=== PATIENT | male | born 1965 | race Caucasian/White ===

== ENCOUNTER 2016-05-15 17:57 | Emergency (ER) | payer OTHER ==
[~2016-05-15] VITALS: Ht 170.2 cm; Wt 81.8 kg
[~2016-05-15 17:57] MED LIST: IRON18TA PO; MAGN250T29 PO
[2016-05-15 18:06] VITALS: BP 163/93; PULSE 102; RESP 16; O2SAT 97
--- NOTE | 2016-05-15 19:05 | ED.REPORT ---
HPI-Extremity Problem Lower Date of Service May 15, 2016 ED Provider: Doc,Ed MD History of Present Illness: 51-year-old male here for lower and upper leg pain. This morning he had some lower leg itching and a mild amount of pain. He itched it and then he noticed a red evon. The itching and pain is gone. Later today his upper inner thigh started hurting. It felt like it was spasming. He tried to stretch and this helped a little bit. It is intermittently hurting, not necessarily with activity or rest. No swelling noted, no erythema. He has had no new activities. He also complains of chronic neck pain. He has not seen anyone for this. He is wanting an MRI. His intermittent numbness and tingling down his arms bilaterally. He also has a history of sciatica and low back pain this is a little bit different pain pattern than his typical sciatica. Denies numbness or tingling, loss of bowel or bladder, or fever Nursing Notes Stated Complaint: LEFT LEG PAIN Chief Complaint: Extremity Trauma Nursing Notes Reviewed: Yes Allergies: Coded Allergies: No Known Allergies (Verified Allergy, Unknown, 05/15/16) No Active Prescriptions or Reported Meds General Time Seen by MD: 18:39 Chief Complaint Thigh injury left Hx Obtained From: Patient Arrived By: Walk-in Onset Occurred: 5 - 8 hours ago Symptom Duration: Waxes and wanes Severity: Current: Mild Severity: Maximum: Moderate Additional Notes: intermittent upper inner thigh pain, relieved by frequent position changes. Pertinent Negative: Pt denies other symptoms Similar Sx Previous: Yes Past Medical History Past Medical History Behcet's syndrome Past Surgical History Hernia repair Smoking History Current Every Day Smoker Social History Alcohol Use: Denies alcohol use Other Social History: Homeless Ambulatory Status Independent Review of Systems Basic Review of Systems Respiratory: No shortness of breath Cardiovascular: No chest pain GI: No abdominal pain Psychiatric: Normal thought content Constitutional: Denies: Chills, Fatigue, Fever Musculoskeletal: Reports: Extremity pain, Neck pain, Denies: Extremity swelling Skin: Reports Itching Complete sys rev & neg: except as marked. GI: Denies: Abdominal pain Male: Denies Dysuria, Denies Penile discharge, Denies Testicular pain Physical Exam Initial Vital Signs Vital Signs (First) Date Time Temp Pulse Resp B/P Pulse Ox O2 Delivery O2 Flow Rate FiO2 05/15/16 18:06 36.1 102 16 163/93 97 Room Air Initial VS: Reviewed, Vital signs normal General/Constitutional: Well-developed Head / Eyes: Atraumatic Respiratory: Breath sounds normal, Clear to auscultation, No respiratory distress Cardiovascular: Regular rate & rhythm, Heart sounds normal, Intact distal pulses Upper Extremities: Vascular intact, No swelling, No tenderness Skin: Warm, Dry, No cyanosis Neurologic: Alert, Oriented, Nonfocal Psychiatric: Mood/affect normal, Behavior normal, Normal thought content Lower Extremity / Pelvis / MS: Atraumatic, Inspection NL, Full range of motion , No swelling, Non-tender, No erythema, No deformity, Neurologic intact, Vascular intact, No edema, Gait NL small bruise to LL leg no obvious swelling, erythema. mild tenderness with deep palp to upper inner thigh. Re-Eval/Medical Decision Med Decision/Clinical Course Discussed the likelihood of this being a blood clot, most likely muscular strain Discharge & Departure Shift Change Sign-Out Response to Therapy: Unchanged Impression: Primary Impression: Muscle strain of lower extremity Encounter type: initial encounter Laterality: left Qualified Code: S86.912A - Strain of unspecified muscle(s) and tendon(s) at lower leg level, left leg, initial encounter Disposition: Home Discharge Condition All VS Reviewed: Yes Condition: Stable Patient Instructions: Leg Cramps (ED) Additional Instructions: For your symptoms today you should increase rest, fluids, stretching. Do frequent position changes as needed. Continue with activity as tolerated. Consider seeing physical therapy. You are getting a referral to ortho for your neck anterior leg pain if this persists. Take her anti-inflammatories as needed for your pains ice and heat as well. Return if loss of bowel or bladder , numbness and tingling, or severe pain. Otherwise follow-up with her PCP and/ or ortho Referrals: Maryann Fleming (PCP) EDSupervising Provider for APC: Vaughn Hooker MD, Linnea K ARNP May 15, 2016 19:05
[2016-05-15 19:56] VITALS: BP 163/93; PULSE 102; RESP 16; O2SAT 97
== END 2016-05-15 19:57 | disposition home or self-care (01) ==
LOC: SED 17:57
DX: S86.912A Strain of unspecified muscle(s) and tendon(s) at lower leg level, left leg, initial encounter (principal); X58.XXXA Exposure to other specified factors, initial encounter; Y92.9 Unspecified place or not applicable; Y93.9 Activity, unspecified; Y99.9 Unspecified external cause status; M54.2 Cervicalgia; G89.29 Other chronic pain; F17.200 Nicotine dependence, unspecified, uncomplicated; Z59.0 Homelessness